=== PATIENT | female | born 1940 | race Caucasian/White ===

== ENCOUNTER 2018-05-25 20:58 | Inpatient (IN) | payer MEDICARE ==
[~2018-05-25] VITALS: Ht 165.1 cm; Wt 49.6 kg
--- NOTE | ~2018-05-25 | MORECARE ---
CASE MANAGEMENT DISCHARGE SUMMARY PATIENT: ISAIAS FOWLER UNIT: [id number] ADM DATE: 05/25/18 AGE: 77 : 40 SEX: F ROOM/BED: D.2131 AUTHOR: MJ TEAGUE PHYSICIAN: REFERRING PHYSICIAN: JUAN DANIEL DEWITT MD DATE OF SERVICE: 05/30/18 Discharge Plan Patient Name: ISAIAS FOWLER Facility: [facility]:[place] : 1940 Planned Disposition: Home Anticipated Discharge Date: 06/01/18 Discharge Date: Expected LOS: 7 Initial Reviewer: [email or web address] Initial Review Date: 05/30/2018 Generated: 05/30/18 5:27 pm Patient Name: ISAIAS FOWLER Page [id number] at 1627 All edits/amendments must be made on the electronic document DICTATION DATE: 05/30/181626 INCIDENT RESPONSE CONSULTANT: SARAH 05/30/181626 RPT#: [id number] DC DATE: STATUS: ADM IN [facility] [address] [place] [address] END OF REPORT
--- NOTE | ~2018-05-25 | MORECARE ---
CASE MANAGEMENT DISCHARGE SUMMARY PATIENT: ISAIAS FOWLER UNIT: [id number] ADM DATE: 05/25/18 AGE: 77 : 40 SEX: F ROOM/BED: D.4416 AUTHOR: ZAHIDA,DOC PHYSICIAN: REFERRING PHYSICIAN: JUAN DANIEL DEWITT MD DATE OF SERVICE: 05/30/18 Discharge Plan Patient Name: ISAIAS FOWLER Facility: [facility]:[place] : 1940 Planned Disposition: Home Anticipated Discharge Date: 06/01/18 Discharge Date: Expected LOS: 7 Initial Reviewer: [email or web address] Initial Review Date: 05/30/2018 Generated: 05/30/18 5:34 pm Comments DCP- Discharge Planning Updated by [email or web address]: Roland Mancuso on 05/30/18 3:[address] Patient Name: ISAIAS FOWLER Admission Status: ER Accout number: [id number] Admission Date: 05-25-2018 : 1940 Admission Diagnosis:OTHER SPECIFIED ABNORMAL FINDINGS OF BLOOD CHEMISTRY Attending: JUAN DANIEL DEWITT Current LOS: 5 Anticipated DC Date: 06-01-2018 Planned Disposition: Home Primary Insurance: MEDICARE A & B Discharge Planning Comments: CM MET WITH PT IN ROOM TO DISCUSS DISCHARGE PLANNING AND NEEDS. PT REPORTS LIVING AT HOME INDEPENDENTLY WITH HER ADULT DAUGHTER; PT HAS HE OWN HOME BUT HAS BEEN STAYING WITH DAUGHTER MARIA JOHN. PT HAS ROLLING WALKER AND NEBULIZER WITH NO MEDICAL EQUIPMENT PROVIDER PREFERENCE. PT HAS NO OUTSIDE SERVICES ASSISTING IN THE HOME. CM DISCUSSED AVAILABILITY OF HOME HEALTH, REHAB SERVICES AND MEDICAL EQUIPMENT. PT DENIES DISCHARGE NEEDS, DENIES NEED OF HOME HEALTH NURSING OR THERAPY; DENIES NEED OF REHAB SERVICES OR MEDICAL EQUIPMENT. PT REPORTS HER DAUGHTER WILL PICK HER UP FOR DISCHARGE HOME. IMPORTANT MESSAGE FROM MEDICARE PROVIDED AND EXPLAINED. PT PLANS TO DISCHARGE HOME WITH DAUGHTER, DENIES DISCHARGE NEEDS AT THIS TIME, DAUGHTER TO TRANSPORT HOME. CM TO FOLLOW AND ASSIST IF NEEDED. Extractor Plant Operator: Roland Mancuso DCPIA - Discharge Planning Initial Assessment Updated by [email or web address]: Roland Mancuso on 05/30/18 4:29 pm * Is the patient Alert and Oriented? Yes * How many steps to enter\exit or inside your home? NONE * PCP DR. SANTOS AGRAWAL, [facility] [facility] * Pharmacy [facility] IN [place] * Preadmission Environment Home with Family * ADLs Independent * Equipment Nebulizer Rolling Walker * Other Equipment NO MEDICAL EQUIPMENT PROVIDER PREFERENCE * List name and contact numbers for known caregivers / representatives who currently or will assist patient after discharge: MARIA DORA, DTR, * Verbal permission to speak to the caregivers and representatives has been obtained from the patient. N/A * Community resources currently utilized None * Please name any agencies selected above. NONE * Additional services required to return to the preadmission environment? No * Can the patient safely return to the preadmission environment? Yes * Has this patient been hospitalized within the prior 30 days at any hospital? No Coverage Notice Reviewer: [id number] Jung Mancuso Notice Issued Date-Time: 05/30/2018 16:10 Notice Type: IM Discharge Notice Notice Delivered To: Patient Relationship to Patient: Anchorer Name: Delivery Method: HAND - Hand Delivered Hazel Days: Prior Verbal Notification: Recipient Understood Notice: Yes Recipient Signature: Yes Med Rec Note Co-signed by Attending: Coverage Notice Comment: Last DP export: 05/30/18 3:27 Patient Name: ISAIAS FOWLER Page [id number] at 1635 All edits/amendments must be made on the electronic document DICTATION DATE: 05/30/181633 VETERANS EMPLOYMENT REPRESENTATIVE: SARAH 05/30/181633 RPT#: [id number] DC DATE: STATUS: ADM IN [facility] [address] [place] [address] END OF REPORT
--- NOTE | ~2018-05-25 | MORECARE ---
CASE MANAGEMENT DISCHARGE SUMMARY PATIENT: ISAIAS FOWLER UNIT: [id number] ADM DATE: 05/25/18 AGE: 77 : 40 SEX: F ROOM/BED: D.9767 AUTHOR: ZAHIDA,DOC PHYSICIAN: REFERRING PHYSICIAN: JUAN DANIEL DEWITT MD DATE OF SERVICE: 06/02/18 Discharge Plan Patient Name: ISAIAS FOWLER Facility: [facility]:[place] : 1940 Planned Disposition: Home Anticipated Discharge Date: 06/01/18 Discharge Date: 06/01/2018 Expected LOS: 7 Initial Reviewer: [email or web address] Initial Review Date: 05/30/2018 Generated: 06/02/18 10:13 am Comments DCP- Discharge Planning Updated by [email or web address]: Roland Mancuso on 05/30/18 3:[address] Patient Name: ISAIAS FOWLER Admission Status: ER Accout number: [id number] Admission Date: 05-25-2018 : 1940 Admission Diagnosis:OTHER SPECIFIED ABNORMAL FINDINGS OF BLOOD CHEMISTRY Attending: JUAN DANIEL DEWITT Current LOS: 5 Anticipated DC Date: 06-01-2018 Planned Disposition: Home Primary Insurance: MEDICARE A & B Discharge Planning Comments: CM MET WITH PT IN ROOM TO DISCUSS DISCHARGE PLANNING AND NEEDS. PT REPORTS LIVING AT HOME INDEPENDENTLY WITH HER ADULT DAUGHTER; PT HAS HE OWN HOME BUT HAS BEEN STAYING WITH DAUGHTER MARIA JOHN. PT HAS ROLLING WALKER AND NEBULIZER WITH NO MEDICAL EQUIPMENT PROVIDER PREFERENCE. PT HAS NO OUTSIDE SERVICES ASSISTING IN THE HOME. CM DISCUSSED AVAILABILITY OF HOME HEALTH, REHAB SERVICES AND MEDICAL EQUIPMENT. PT DENIES DISCHARGE NEEDS, DENIES NEED OF HOME HEALTH NURSING OR THERAPY; DENIES NEED OF REHAB SERVICES OR MEDICAL EQUIPMENT. PT REPORTS HER DAUGHTER WILL PICK HER UP FOR DISCHARGE HOME. IMPORTANT MESSAGE FROM MEDICARE PROVIDED AND EXPLAINED. PT PLANS TO DISCHARGE HOME WITH DAUGHTER, DENIES DISCHARGE NEEDS AT THIS TIME, DAUGHTER TO TRANSPORT HOME. CM TO FOLLOW AND ASSIST IF NEEDED. Dean Of Instruction: Roland Mancuso DCPIA - Discharge Planning Initial Assessment Updated by [email or web address]: Roland Mancuso on 05/30/18 4:29 pm * Is the patient Alert and Oriented? Yes * How many steps to enter\exit or inside your home? NONE * PCP DR[facility] SANTOS AGRAWAL, [facility] * Pharmacy [facility] IN [place] * Preadmission Environment Home with Family * ADLs Independent * Equipment Nebulizer Rolling Walker * Other Equipment NO MEDICAL EQUIPMENT PROVIDER PREFERENCE * List name and contact numbers for known caregivers / representatives who currently or will assist patient after discharge: MARIA BALLESTEROSINS, DTR, * Verbal permission to speak to the caregivers and representatives has been obtained from the patient. N/A * Community resources currently utilized None * Please name any agencies selected above. NONE * Additional services required to return to the preadmission environment? No * Can the patient safely return to the preadmission environment? Yes * Has this patient been hospitalized within the prior 30 days at any hospital? No Coverage Notice Reviewer: [email or web address] Jung Mancuso Notice Issued Date-Time: 05/30/2018 16:10 Notice Type: IM Discharge Notice Notice Delivered To: Patient Relationship to Patient: Machine Rebuilder Name: Delivery Method: HAND - Hand Delivered Hazel Days: Prior Verbal Notification: Recipient Understood Notice: Yes Recipient Signature: Yes Med Rec Note Co-signed by Attending: Coverage Notice Comment: Last DP export: 05/30/18 3:35 Patient Name: ISAIAS FOWLER Page 10336 at 0913 All edits/amendments must be made on the electronic document DICTATION DATE: 06/02/18911 DIRECTOR INDUSTRIAL MUSEUM: SARAH 06/02/18911 RPT#: [id number] DC DATE:06/01/18 STATUS: DIS IN [facility] [address] [place] [address] END OF REPORT
[2018-05-25] MEDS ORDERED: BENZTROPINE ME0.5 MG PO (21:11)
[2018-05-25] MEDS ORDERED: PACERONE200 MG PO (21:11)
[2018-05-25] MEDS ORDERED: NAMENDA10 MG PO (21:12)
[2018-05-25] MEDS ORDERED: NEURONTIN 300300 MG PO (21:12)
[2018-05-25] MEDS ORDERED: SYNTHROID125 MCG PO (21:12)
[2018-05-25] MEDS ORDERED: DONEPEZIL HCL10 M1 PO (21:12)
[2018-05-25] MEDS ORDERED: PRINIVIL20 MG PO (21:13)
[2018-05-25] MEDS ORDERED: OXYBUTYNIN CHLOR5 MG PO (21:13)
[2018-05-25] MEDS ORDERED: ZOCOR40 MG PO (21:14)
[2018-05-25] MEDS ORDERED: FUROSEMIDE20 MG PO (21:14)
[2018-05-25] MEDS ORDERED: ZOLOFT25 MG PO (21:14)
[2018-05-25] MEDS ORDERED: K-DUR20 MEQ PO (21:15)
[2018-05-25 21:46] LABS: BASOPHILS 0.2 % (0-2); EOSINOPHILS 0.1 % (0-7); HEMATOCRIT 37.7 % (36.0-48.0); HEMOGLOBIN 12.1 g/dL (12-16); IMMATURE GRANULOCYTES 0.4 % (0-5); LYMPHOCYTES 17.2 % (15-50); MCH 28.6 pg (26.0-34.0); MCHC 32.1 g/dL (31.0-37.0); MCV 89.1 fL (80.0-100.0); MONOCYTES 13.9 % (2-11); NEUTROPHILS 68.2 % (40-80); PLATELET COUNT 200 10x3/uL (130-400); RBC 4.23 10x6/uL (4.00-5.40); RDW 15.6 % (11.5-14.5); WBC 13.4 10x3/uL (4.8-10.8)
[2018-05-25 21:54] LABS: APTT 25.1 SECONDS (22.8-39.4); INR 1.12 (0.85-1.17)
[2018-05-25 22:03] LABS: ALKALINE PHOSPHATASE 65 U/L (46-116); ALT (SGPT) 23 U/L (10-68); BILIRUBIN - TOTAL 0.99 mg/dL (0.2-1.3); CALC OSMOLALITY 284 mosm/kg (275-300); CARBON DIOXIDE 30.8 mmol/L (21.0-32.0); CHLORIDE - SERUM 102 mmol/L (98-107); GLUCOSE 109 mg/dL (74-106); POTASSIUM - SERUM 3.2 mmol/L (3.5-5.1); PROTEIN - SERUM 6.8 g/dL (6.4-8.2); SODIUM 143 mmol/L (136-145); UREA NITROGEN 11 mg/dL (7-18); eGFR NON AFRICAN AMERICAN 57 mL/min (90-120)
[2018-05-25 22:14] LABS: CKMB 0.7 U/L (0.0-3.6); CREATINE KINASE 30 UL (21-215); PRO BNP 5398 pg/mL (0-450); TROPONIN-I 0.028 ng/mL (0.000-0.060)
[2018-05-25 23:00] VITALS: BP 112/58
[2018-05-25 23:59] VITALS: BP 124/53; BMI 19.2
[2018-05-26] MEDS ORDERED: KEFLEX500 MG PO (00:33)
[2018-05-26] MEDS ORDERED: REMERON15 MG PO (00:35)
[2018-05-26 01:18] VITALS: BP 124/53
[2018-05-26 05:04] LABS: BASOPHILS 0.2 % (0-2); EOSINOPHILS 0.4 % (0-7); HEMATOCRIT 38.1 % (36.0-48.0); HEMOGLOBIN 12.2 g/dL (12-16); IMMATURE GRANULOCYTES 0.5 % (0-5); LYMPHOCYTES 15.5 % (15-50); MCH 28.4 pg (26.0-34.0); MCV 88.6 fL (80.0-100.0); MEAN PLATELET VOLUME 11.6 fL (7.4-10.4); MONOCYTES 14.2 % (2-11); NEUTROPHILS 69.2 % (40-80); PLATELET COUNT 190 10x3/uL (130-400); RDW 15.5 % (11.5-14.5); WBC 11.1 10x3/uL (4.8-10.8)
[2018-05-26 06:05] LABS: ALBUMIN 2.8 g/dL (3.4-5.0); ANION GAP 11.8 mmol/L (8-16); BILIRUBIN - TOTAL 0.96 mg/dL (0.2-1.3); CALCIUM 8.7 mg/dL (8.5-10.1); CARBON DIOXIDE 28.7 mmol/L (21.0-32.0); CREATININE - SERUM 0.8 mg/dL (0.6-1.3); POTASSIUM - SERUM 3.5 mmol/L (3.5-5.1); PROTEIN - SERUM 6.6 g/dL (6.4-8.2)
[2018-05-26 06:15] VITALS: BP 121/51
[2018-05-26] MEDS ORDERED: BREO ELLIPTA 21 EACH (07:52)
[2018-05-26] MEDS ORDERED: VITAMIN B-121000 MCG PO (07:53)
[2018-05-26] MEDS ORDERED: FERROUS SULFAT325 MG PO (07:54)
[2018-05-26] MEDS ORDERED: REMERON30 MG PO (07:54)
[2018-05-26] MEDS ORDERED: SUPER B COMPLE150 MG PO (07:55)
[2018-05-26] MEDS ORDERED: VITAMIN C WIT1000 MG PO (07:55)
[2018-05-26] MEDS ORDERED: NAMENDA10 MG PO (07:57)
[2018-05-26] MEDS ORDERED: IPRAT-ALBUT 0.5-3 ML UPD (07:57)
[2018-05-26 08:00] VITALS: BP 121/50
[2018-05-26 11:21] VITALS: BP 104/56
[2018-05-26 13:14] VITALS: BMI 19.2
[2018-05-26 13:51] LABS: APPEARANCE CLEAR (CLEAR); COLOR YELLOW (YELLOW); NITRITE NEGATIVE (NEGATIVE); PROTEIN 1+ mg/dL (NEGATIVE)
[2018-05-26 13:52] LABS: BACTERIA FEW /hpf (NONE SEEN); BILIRUBIN NEGATIVE (NEGATIVE); EPITHELIAL CELLS 0-5 /hpf (0-5); GLUCOSE NEGATIVE (NEGATIVE); KETONE NEGATIVE (NEGATIVE); RED CELLS - URINE 0-5 /hpf (0-5); UROBILINOGEN NORMAL (NORMAL); WHITE CELLS - URINE 0-5 /hpf (0-5)
[2018-05-26 14:49] VITALS: BP 102/63
[2018-05-26 15:56] VITALS: Ht 165.1 cm; Wt 49.6 kg
[2018-05-26 21:07] VITALS: BP 99/52
[2018-05-27] VITALS: BP 110/54
[2018-05-27 04:00] VITALS: BP 110/49
[2018-05-27 05:39] LABS: BASOPHILS 0.3 % (0-2); EOSINOPHILS 1.1 % (0-7); HEMATOCRIT 39.8 % (36.0-48.0); HEMOGLOBIN 12.8 g/dL (12-16); IMMATURE GRANULOCYTES 0.7 % (0-5); LYMPHOCYTES 21.2 % (15-50); MCH 28.6 pg (26.0-34.0); MCHC 32.2 g/dL (31.0-37.0); MCV 88.8 fL (80.0-100.0); MEAN PLATELET VOLUME 11.7 fL (7.4-10.4); NEUTROPHILS 63.7 % (40-80); RBC 4.48 10x6/uL (4.00-5.40); RDW 15.5 % (11.5-14.5)
[2018-05-27 05:45] LABS: PLATELET COUNT 235 10x3/uL (130-400); WBC 7.6 10x3/uL (4.8-10.8)
[2018-05-27 06:00] LABS: ANION GAP 11.4 mmol/L (8-16); CALCIUM 8.9 mg/dL (8.5-10.1); CARBON DIOXIDE 29.4 mmol/L (21.0-32.0); CREATININE - SERUM 0.9 mg/dL (0.6-1.3); POTASSIUM - SERUM 3.8 mmol/L (3.5-5.1)
[2018-05-27 09:04] VITALS: BP 121/54
[2018-05-27 13:05] VITALS: BP 126/58
[2018-05-27 15:57] VITALS: BP 106/45
[2018-05-27 21:06] VITALS: BP 106/30
[2018-05-28 01:00] VITALS: BP 123/42
[2018-05-28 05:19] LABS: BASOPHILS 0.2 % (0-2); EOSINOPHILS 1.1 % (0-7); HEMATOCRIT 37.7 % (36.0-48.0); IMMATURE GRANULOCYTES 0.9 % (0-5); MCH 28.4 pg (26.0-34.0); MCHC 31.8 g/dL (31.0-37.0); MCV 89.1 fL (80.0-100.0); MEAN PLATELET VOLUME 11.4 fL (7.4-10.4); MONOCYTES 11.4 % (2-11); NEUTROPHILS 68.4 % (40-80); PLATELET COUNT 262 10x3/uL (130-400); RBC 4.23 10x6/uL (4.00-5.40); RDW 15.6 % (11.5-14.5); WBC 8.9 10x3/uL (4.8-10.8)
[2018-05-28 05:32] LABS: ANION GAP 10.6 mmol/L (8-16); CALCIUM 9.2 mg/dL (8.5-10.1); POTASSIUM - SERUM 3.6 mmol/L (3.5-5.1)
[2018-05-28 06:12] VITALS: BP 149/70
[2018-05-28 08:24] VITALS: BP 117/48
[2018-05-28 11:08] VITALS: BP 109/46
[2018-05-28 12:08] LABS: IMMUNOGLOBULIN A 97 mg/dL (64-422); IMMUNOGLOBULIN G 721 mg/dL (700-1600); IMMUNOGLOBULIN M 132 mg/dL (26-217)
[2018-05-28 16:14] VITALS: BP 120/50
[2018-05-28 20:21] VITALS: BP 127/49
[2018-05-29 01:24] VITALS: BP 114/54
[2018-05-29 05:36] VITALS: BP 110/48
[2018-05-29 06:02] LABS: BASOPHILS 0.3 % (0-2); EOSINOPHILS 1.9 % (0-7); HEMATOCRIT 36.8 % (36.0-48.0); HEMOGLOBIN 11.6 g/dL (12-16); IMMATURE GRANULOCYTES 0.6 % (0-5); LYMPHOCYTES 19.9 % (15-50); MCH 28.2 pg (26.0-34.0); MCHC 31.5 g/dL (31.0-37.0); MCV 89.3 fL (80.0-100.0); MEAN PLATELET VOLUME 11.4 fL (7.4-10.4); MONOCYTES 12.4 % (2-11); NEUTROPHILS 64.9 % (40-80); PLATELET COUNT 244 10x3/uL (130-400); RBC 4.12 10x6/uL (4.00-5.40); RDW 15.7 % (11.5-14.5)
[2018-05-29 06:18] LABS: ANION GAP 8.1 mmol/L (8-16); CALCIUM 8.8 mg/dL (8.5-10.1); CARBON DIOXIDE 29.8 mmol/L (21.0-32.0); CREATININE - SERUM 0.9 mg/dL (0.6-1.3); POTASSIUM - SERUM 3.9 mmol/L (3.5-5.1)
[2018-05-29 08:12] VITALS: BP 133/63
[2018-05-29 11:20] VITALS: BP 125/111
[2018-05-29 15:41] VITALS: BP 128/83
[2018-05-29 19:56] VITALS: BP 116/47
[2018-05-30 00:57] VITALS: BP 113/50
[2018-05-30 05:57] LABS: BASOPHILS 0.2 % (0-2); HEMATOCRIT 39.8 % (36.0-48.0); HEMOGLOBIN 12.6 g/dL (12-16); LYMPHOCYTES 19.2 % (15-50); MCH 28.1 pg (26.0-34.0); MCHC 31.7 g/dL (31.0-37.0); MCV 88.6 fL (80.0-100.0); MEAN PLATELET VOLUME 10.8 fL (7.4-10.4); MONOCYTES 12.1 % (2-11); NEUTROPHILS 65.5 % (40-80); PLATELET COUNT 260 10x3/uL (130-400); RBC 4.49 10x6/uL (4.00-5.40); RDW 15.5 % (11.5-14.5)
[2018-05-30 05:58] VITALS: BP 140/55
[2018-05-30 06:05] LABS: ANION GAP 11.4 mmol/L (8-16); CALCIUM 9.2 mg/dL (8.5-10.1); CARBON DIOXIDE 30.4 mmol/L (21.0-32.0); CREATININE - SERUM 1.1 mg/dL (0.6-1.3); POTASSIUM - SERUM 3.8 mmol/L (3.5-5.1)
[2018-05-30 06:09] LABS: WBC 8.9 10x3/uL (4.8-10.8)
[2018-05-30 08:33] VITALS: BP 133/58
[2018-05-30 11:12] VITALS: BP 125/68
[2018-05-30 15:48] VITALS: BP 131/56
[2018-05-30 20:00] VITALS: BP 132/58
[2018-05-31] VITALS: BP 98/36
[2018-05-31 04:00] VITALS: BP 115/55
[2018-05-31 07:17] LABS: BASOPHILS 0.2 % (0-2); HEMATOCRIT 38.9 % (36.0-48.0); HEMOGLOBIN 12.4 g/dL (12-16); IMMATURE GRANULOCYTES 0.8 % (0-5); LYMPHOCYTES 18.3 % (15-50); MCH 28.2 pg (26.0-34.0); MCHC 31.9 g/dL (31.0-37.0); MCV 88.6 fL (80.0-100.0); MEAN PLATELET VOLUME 10.8 fL (7.4-10.4); MONOCYTES 10.5 % (2-11); NEUTROPHILS 68.2 % (40-80); PLATELET COUNT 255 10x3/uL (130-400); RBC 4.39 10x6/uL (4.00-5.40); RDW 15.1 % (11.5-14.5); WBC 9.5 10x3/uL (4.8-10.8)
[2018-05-31 07:38] LABS: ANION GAP 10.3 mmol/L (8-16); CALCIUM 9.6 mg/dL (8.5-10.1); CARBON DIOXIDE 32.4 mmol/L (21.0-32.0); POTASSIUM - SERUM 3.7 mmol/L (3.5-5.1); VANCOMYCIN - TROUGH 14.8 ug/mL (10.0-20.0)
[2018-05-31 08:30] VITALS: BP 136/58
[2018-05-31 09:20] LABS: IMMUNOGLOBULIN E 196 IU/mL (0-100)
[2018-05-31 11:28] VITALS: BP 125/55
[2018-05-31 16:48] VITALS: BP 131/61
[2018-05-31 20:00] VITALS: BP 103/39
[2018-06-01] VITALS: BP 110/44
[2018-06-01 04:00] VITALS: BP 100/43
[2018-06-01 06:05] LABS: BASOPHILS 0.3 % (0-2); EOSINOPHILS 1.9 % (0-7); HEMOGLOBIN 11.9 g/dL (12-16); IMMATURE GRANULOCYTES 1.2 % (0-5); LYMPHOCYTES 19.8 % (15-50); MCH 28.5 pg (26.0-34.0); MCHC 32.2 g/dL (31.0-37.0); MCV 88.7 fL (80.0-100.0); MEAN PLATELET VOLUME 11.1 fL (7.4-10.4); MONOCYTES 11.6 % (2-11); NEUTROPHILS 65.2 % (40-80); PLATELET COUNT 250 10x3/uL (130-400); RBC 4.17 10x6/uL (4.00-5.40); RDW 15.3 % (11.5-14.5)
[2018-06-01 06:21] LABS: ALBUMIN 2.7 g/dL (3.4-5.0); ANION GAP 6.7 mmol/L (8-16); BILIRUBIN - TOTAL 0.38 mg/dL (0.2-1.3); CALCIUM 9.2 mg/dL (8.5-10.1); CARBON DIOXIDE 35.1 mmol/L (21.0-32.0); POTASSIUM - SERUM 3.8 mmol/L (3.5-5.1); PROTEIN - SERUM 6.5 g/dL (6.4-8.2)
[2018-06-01 08:10] VITALS: BP 123/55
[2018-06-01 11:17] VITALS: BP 123/55
[2018-06-01 11:19] VITALS: BP 148/66
[2018-06-01] MEDS ORDERED: FLORAJEN3 CAPS460 MG PO (14:07)
[2018-06-01] MEDS ORDERED: ROCEPHIN 1 GM/D51 G1 IV ×2 (14:08→14:16)
[2018-06-01 15:28] VITALS: BP 132/69
== END 2018-06-01 16:28 | disposition home or self-care (01) | DRG 177 ==
LOC: D.ER 20:58 → D.M2 21:41
PROVIDERS: Family Medicine; Internal Medicine Nephrology; Internal Medicine Pulmonary Disease
DX: J15.6 Pneumonia due to other Gram-negative bacteria (principal); I50.23 Acute on chronic systolic (congestive) heart failure; F17.213 Nicotine dependence, cigarettes, with withdrawal; I42.9 Cardiomyopathy, unspecified; E46 Unspecified protein-calorie malnutrition; Z68.1 Body mass index [BMI] 19.9 or less, adult; I11.0 Hypertensive heart disease with heart failure; I48.0 Paroxysmal atrial fibrillation; I25.10 Atherosclerotic heart disease of native coronary artery without angina pectoris; E78.5 Hyperlipidemia, unspecified; I73.9 Peripheral vascular disease, unspecified; E87.6 Hypokalemia; J69.0 Pneumonitis due to inhalation of food and vomit; I08.1 Rheumatic disorders of both mitral and tricuspid valves; Z95.1 Presence of aortocoronary bypass graft